=== PATIENT | male | born 1965 | race Two or more races ===

== ENCOUNTER 2020-03-22 10:35 | Emergency (ER) | payer OTHER ==
[~2020-03-22] VITALS: Ht 182.9 cm; Wt 145.1 kg
[2020-03-22] MEDS ORDERED: diphenhdrAMINE HCL 50 MG/1 ML VL IV ONE ×2 (11:00→11:15)
[2020-03-22] MEDS ORDERED: cefTRIAXone 1GM/50ML D5W 50 ML IV ONE (11:00)
[2020-03-22] MEDS ORDERED: KETOROLAC TROMETH 30 MG/ML 1ML VIAL IV ONE (11:00)
[2020-03-22 12:00] VITALS: BP 159/90
== END 2020-03-22 12:26 | disposition home or self-care (01) ==
LOC: ER 10:35 → EDBD 10:35 → ER 12:26
DX: S06.891A Other specified intracranial injury with loss of consciousness of 30 minutes or less, initial encounter (principal); S80.212A Abrasion, left knee, initial encounter; S80.211A Abrasion, right knee, initial encounter; S50.812A Abrasion of left forearm, initial encounter; S50.811A Abrasion of right forearm, initial encounter; S80.812A Abrasion, left lower leg, initial encounter; I10 Essential (primary) hypertension; V23.4XXA Motorcycle driver injured in collision with car, pick-up truck or van in traffic accident, initial encounter; Y93.I9 Activity, other involving external motion; Y92.410 Unspecified street and highway as the place of occurrence of the external cause; Y99.8 Other external cause status
CPT/HCPCS: 70450; 96365; 96375; 99284; J0696; J1200; J1885